=== PATIENT | female | born 1950 | race Caucasian/White ===

== ENCOUNTER 2021-12-23 21:55 | Inpatient (IN) | payer OTHER ==
[~2021-12-23] VITALS: Ht 157.5 cm; Wt 65.3 kg
[2021-12-23] MEDS ORDERED: CYANOCOBAL1000 MCG/1 INJ (23:42)
[2021-12-23] MEDS ORDERED: ARTHRITIS PAIN150 GM TP (23:43)
[2021-12-23] MEDS ORDERED: FARXIGA10 MG PO (23:43)
[2021-12-23] MEDS ORDERED: FENOFIBRATE54 MG PO (23:44)
[2021-12-23] MEDS ORDERED: LANTUS100 UNIT/1 SQ (23:45)
[2021-12-23] MEDS ORDERED: HYDROXYZINE HCL10 MG PO (23:45)
[2021-12-23] MEDS ORDERED: OZEMPIC2 MG/0.75 SQ (23:46)
[2021-12-23] MEDS ORDERED: SERTRALINE HCL50 MG PO (23:46)
[2021-12-23] MEDS ORDERED: PROLOPRIM 100100 MG PO (23:47)
[2021-12-24 05:29] LABS: HEMOGLOBIN 10.7 gm/dl (12.3-15.3); RED BLOOD COUNT 3.48 M/UL (4.00-5.10); WHITE BLOOD COUNT 9.1 K/UL (4.5-11.0)
[2021-12-24 05:50] LABS: BUN/CREATININE RATIO 23 (0-10)
[2021-12-24 18:57] LABS: BUN/CREATININE RATIO 21 (0-10)
[2021-12-25 04:46] LABS: HEMOGLOBIN 11.1 gm/dl (12.3-15.3); RED BLOOD COUNT 3.61 M/UL (4.00-5.10)
[2021-12-25 04:54] LABS: WHITE BLOOD COUNT 6.1 K/UL (4.5-11.0)
[2021-12-25 05:13] LABS: BUN/CREATININE RATIO 14 (0-10)
[2021-12-26 04:03] LABS: HEMOGLOBIN 11.2 gm/dl (12.3-15.3); RED BLOOD COUNT 3.7 M/UL (4.00-5.10); WHITE BLOOD COUNT 5.4 K/UL (4.5-11.0)
[2021-12-26 04:22] LABS: BUN/CREATININE RATIO 13 (0-10)
[2021-12-26] MEDS ORDERED: HUMALOG 10100 UNITS/ SC (16:07)
[2021-12-26] MEDS ORDERED: PHOS-NAK PACKET1 EA NG (16:22)
[2021-12-26] MEDS ORDERED: DEX4 GLUCOSE4 GM PO (16:22)
[2021-12-26] MEDS ORDERED: ZOFRAN 4 MG TAB4 MG PO (16:27)
== END 2021-12-26 17:44 | disposition home or self-care (01) | DRG 638 ==
LOC: CCU 23:30
PROVIDERS: Internal Medicine; ADMIT Internal Medicine
DX: E11.10 Type 2 diabetes mellitus with ketoacidosis without coma (principal); E87.3 Alkalosis; E78.5 Hyperlipidemia, unspecified; F41.9 Anxiety disorder, unspecified; Z20.822 Contact with and (suspected) exposure to COVID-19; I12.9 Hypertensive chronic kidney disease with stage 1 through stage 4 chronic kidney disease, or unspecified chronic kidney disease; N18.30 Chronic kidney disease, stage 3 unspecified; E11.22 Type 2 diabetes mellitus with diabetic chronic kidney disease; R00.0 Tachycardia, unspecified; E86.0 Dehydration; E87.6 Hypokalemia; F32.A Depression, unspecified; R11.2 Nausea with vomiting, unspecified; E83.39 Other disorders of phosphorus metabolism; Z85.51 Personal history of malignant neoplasm of bladder; Z90.710 Acquired absence of both cervix and uterus; Z90.49 Acquired absence of other specified parts of digestive tract; Z88.8 Allergy status to other drugs, medicaments and biological substances
CPT/HCPCS: 36415; 71045; 80048; 80053; 81001; 82550; 82553; 82962; 83036; 83605; 83735; 84100; 84132; 84484; 85025; J1650